=== PATIENT | female | born 1970 | race Caucasian/White ===

== ENCOUNTER 2019-10-28 14:52 | Emergency (ER) | payer OTHER, SELFPAY ==
--- NOTE | 2019-10-28 15:03 | ED.BACK ---
HPI - Back Pain/Injury General Chief Complaint: Back Pain/Injury Stated Complaint: back/arm pain Time Seen by Provider: 10/28/19 15:04 Source: patient and RN notes reviewed Mode of arrival: ambulatory Limitations: no limitations History of Present Illness HPI Narrative: This is a 48 years old female presents to the office for an evaluation of back pain post fall yesterday. She slipped and fell on her bottom. Pain was tolerable at first, she able to get up without any assistance. She woke up this morning with really bad pain in her her whole back especially her lower back. Denies numbness or tingling in her fingers or toes. She took Tylenol prior to arrival. Denies head injury or dizziness prior to falling. Related Data Home Medications Medication Instructions Recorded Confirmed alprazolam 2 mg PO TID PRN 10/28/19 10/28/19 Allergies Allergy/AdvReac Type Severity Reaction Status Date / Time No Known Allergies Allergy Verified 10/28/19 14:56 Review of Systems Review of Systems: Narrative: CONSTITUTIONAL: Denies feeling ill EYES: Denies visual changes ENT: Denies congestion CARDIOVASCULAR: Denies chest injury RESPIRATORY: Denies dyspnea GASTROINTESTINAL: Denies abdominal injury GENITOURINARY: Denies urinary or bowel incontinence SKIN: Denies bruising MUSCULOSKELETAL: Reports left arm, shoulder and back pain. NEUROLOGIC: Denies lightheaded/dizziness PMFSH Social History Social History (Updated 10/28/19 @ 15:21 by STANLEY Todd) Smoking status: Current every day smoker Gender identity (if verbalized by the patient): Female Comments At time of signature, I agree with nursing past medical, surgical, social and family history. There is no relevant family history pertinent to the presenting complaint. Exam Narrative: Exam Narrative: GENERAL: This is a well-nourished, well-developed patient, in no apparent distress. CARDIOVASCULAR: Regular rate and rhythm without murmurs, gallops, or rubs. RESPIRATORY: Clear to auscultation. Breath sounds equal bilaterally. No wheezes, rales, or rhonchi. GASTROINTESTINAL: Abdomen soft, non-tender, nondistended. Bowel sounds are active. No guarding. NEURO: awake, alert, and oriented to person, place and time. There were no obvious focal neurologic abnormalities. Steady gait EXTREMITIES: Normal range of motion. Patient flexes her left arm to show me where her back pain located BACK: Tenderness in the paraspinous muscles in the thoracic, lumbar area. No tenderness over the spinous processes of the lumbar vertebrae. LEGS: Normal strength including dorsi-flexion and plantar flexion of the feet. Negative bilateral straight leg raising; reports feeling tight on her back when she lifted her legs, normal and symmetrical knee reflexes. No obvious skin abrasion/bruise noted on her back/bottock. [place] Coma Scale Eye Opening: Spontaneous 4 Ruddy Coma Scale Motor: Obeys Commands 6 [place] Coma Scale Verbal: Oriented 5 MDM - Back Pain/Injury MDM Narrative Medical decision making narrative: X-ray is not indicated at this time since there is no spinal injury based on patient s/s and clinical exam. Patient agrees with plan of care. Discharge instructions reviewed with patient, as well as provided in writing per nursing staff. The instructions also include specific and strict return/GO TO THE ER as well as f/u information. All questions have been answered, and the patient deny any further questions with discharge and discharge plan. Differential Diagnosis Differential diagnosis: Likely lumbar radiculopathy, sciatica and strain of lumbar region Critical Care Time Critical Care Time Critical Care Time: No Discharge Plan Discharge Clinical Impression: Back pain Qualifiers: Back pain location: low back pain Chronicity: acute Back pain laterality: left Sciatica presence: without sciatica Qualified Code(s): M54.5 - Low back pain Patient Disposition: Home, Self-Care Co
[2019-10-28 15:04] VITALS: BP 121/80; PULSE 112; RESP 16; TEMP 36.6; O2SAT 98
== END 2019-10-28 15:15 | disposition home or self-care (01) ==
PROVIDERS: Emergency Provider Nurse Practitioner
DX: S39.92XA Unspecified injury of lower back, initial encounter (principal); F17.210 Nicotine dependence, cigarettes, uncomplicated; W01.0XXA Fall on same level from slipping, tripping and stumbling without subsequent striking against object, initial encounter
CPT/HCPCS: 99213; G0463

== ENCOUNTER 2020-08-03 17:29 | Emergency (ER) | payer OTHER, SELFPAY ==
[2020-08-03 17:44] VITALS: BP 114/68; PULSE 101; RESP 16; TEMP 36.1; O2SAT 99
--- NOTE | 2020-08-03 18:02 | ED.URI ---
HPI - URI/Sore Throat General Chief Complaint: Upper Respiratory Infection Stated Complaint: sore throat Time Seen by Provider: 08/03/20 17:48 Source: patient and RN notes reviewed Mode of arrival: ambulatory Limitations: no limitations History of Present Illness HPI Narrative: Patient presents today complaining of a sore throat x2 days. She denies any additional symptoms to include cough, congestion, rhinorrhea, fever, ear pain, loss of taste or smell, nausea, vomiting, diarrhea. Currently rates her sore throat 8/10, which increases with swallowing. She has been taking ibuprofen without relief. Denies any sick contacts. MD elicited complaint: sore throat Related Data Home Medications Medication Instructions Recorded Confirmed No Home Medications 08/03/20 08/03/20 Allergies Allergy/AdvReac Type Severity Reaction Status Date / Time No Known Allergies Allergy Verified 08/03/20 17:48 Review of Systems Review of Systems: Narrative: CONSTITUTIONAL: Denies body aches, fever, chills, or sweats. EYES: Denies visual changes, redness, or discharge. ENT: Denies rhinorrhea, congestion,or otalgia.+ Sore throat CARDIOVASCULAR: Denies chest pain, palpitations, or edema. RESPIRATORY: Denies cough or dyspnea. GASTROINTESTINAL: Denies abdominal pain, nausea, vomiting, or diarrhea. GENITOURINARY: Denies dysuria or hematuria. SKIN: Denies rash, itching, or wounds. MUSCULOSKELETAL: Denies back pain, joint pain, or myalgia. NEUROLOGIC: Denies headache, numbness, tingling, or weakness. PSYCH: Denies depression or anxiety. [facility] Social History Social History (Updated 10/28/19 @ 15:21 by STANLEY Todd) Smoking status: Current every day smoker Gender identity (if verbalized by the patient): Female Comments At time of signature, I have reviewed and agree with nursing past medical, surgical, social and family history unless otherwise noted. Please see nursing chart for further information. There is no relevant family history pertinent to the presenting complaint Exam Narrative: Exam Narrative: GENERAL: Well-appearing, well-nourished, and in no acute distress. HEAD: Normocephalic, atraumatic. EYES: EOMI. No redness or drainage. Conjunctivae normal. ENT: Mucous membranes pink and moist. Nares clear. No rhinorrhea. TMs normal bilaterally. Throat slightly erythematous without edema or exudate. Uvula midline. NECK: Normal AROM. Supple. No lymphadenopathy. CHEST: No respiratory distress. Clear to auscultation. HEART: Regular rate and rhythm. No murmur appreciated. Normal peripheral pulses. EXTREMITIES: Normal range of motion. No edema. SKIN: Warm, dry, no rash. Capillary refill normal. Normal skin turgor. NEURO: No focal deficits. Alert and oriented x3. Gait steady. PSYCH: Normal affect. No signs of depression or anxiety. Course Vital Signs Vital signs: Vital Signs Temperature 97.0 F L 08/03/20 17:44 Pulse Rate 101 H 08/03/20 17:44 Respiratory Rate 16 08/03/20 17:44 Blood Pressure 114/68 08/03/20 17:44 Pulse Oximetry 99 08/03/20 17:44 Temperature 97.0 F L 08/03/20 17:44 Pulse Rate 101 H 08/03/20 17:44 Respiratory Rate 16 08/03/20 17:44 Blood Pressure 114/68 08/03/20 17:44 Pulse Oximetry 99 08/03/20 17:44 Reviewed. Pt has been instructed to follow up with his PCP regarding his elevated blood pressure today. MDM - URI/Sore Throat Differential Diagnosis Differential diagnosis: Likely upper respiratory infection, viral infection, pharyngitis and other (Strep throat) Lab Data Attestation: I reviewed the patient's lab results. Labs: Strep Screen Presumptive Negative *(Reference Range: Negative)* Critical Care Time Critical Care Time Critical Care Time: No Discharge Plan Discharge Clinical Impression: Acute viral pharyngitis Patient Disposition: Home, Self-Care Condition: Stable Instructions: Strep T
== END 2020-08-03 18:07 | disposition home or self-care (01) ==
PROVIDERS: Emergency Provider Nurse Practitioner
DX: J02.8 Acute pharyngitis due to other specified organisms (principal); F17.200 Nicotine dependence, unspecified, uncomplicated
CPT/HCPCS: 87081; 87880; 99213; G0463

== ENCOUNTER 2020-11-06 23:56 | Emergency (ER) | payer OTHER, SELFPAY ==
--- NOTE | ~2020-11-06 | XR_ITS ---
EXAMINATION: XR ankle LT min 3V, XR tibia fibula LT 2V DATE: 11/07/2020 00:39 INDICATION: Left ankle and lower leg pain post fall TECHNIQUE: 1. Anteroposterior and lateral views of the left tibia and fibula were obtained. 2. Anteroposterior, oblique, mortise, and lateral views of the left ankle were obtained. COMPARISON: None. FINDINGS: Alignment is normal. No fracture. Joint spaces are well maintained. No ankle joint effusion. The so ft tissues are unremarkable. IMPRESSION: 1. Normal left lower leg and ankle radiographs. Reviewed, dictated and finalized at location A. IMPRESSION: 1. Normal left lower leg and ankle radiographs.
[2020-11-07 00:23] VITALS: BP 138/94; PULSE 108; RESP 21; TEMP 36; O2SAT 100
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
== END 2020-11-07 00:35 | disposition left against medical advice (07) ==
LOC: ANHED 11-07 01:01
PROVIDERS: Emergency Provider Emergency Medicine
DX: M79.662 Pain in left lower leg (principal)
CPT/HCPCS: 73590; 73610; 99199

== ENCOUNTER 2021-04-26 17:17 | Emergency (ER) | payer OTHER, SELFPAY ==
--- NOTE | ~2021-04-26 | CT_ITS ---
EXAMINATION: CT abdomen pelvis w con DATE: 04/26/2021 20:15 INDICATION: Abdominal pain TECHNIQUE: Computed tomography (CT) of the abdomen and pelvis was performed with 100 mL Omnipaque-350 intravenous contrast. Automated exposure control and iterative reconstruction technique were employe d. The dose-length product was 473.12 mGy-cm. COMPARISON: None FINDINGS: Minimal bibasilar atelectasis. Heart size is normal. No pericardial or pleural effusion. Liver, gallb ladder, spleen, pancreas, bilateral adrenal glands and left kidney are normal. Couple small regions o f cortical scarring at the right kidney. 2 mm nonobstructing stone versus heterotopic ossification at one of the regions of scarring at the upper pole of the right kidney. No ureteral stones or hydronep hrosis. The bowels including a retrocecal appendix are normal. Bladder, uterus and bilateral adnexa a re unremarkable. No free intraperitoneal gas or fluid. No pathologically enlarged abdominal or pelvic lymphadenopathy. Minimal lumbar dextrocurvature with mild spondylosis. IMPRESSION: 1. No acute intra-abdominal/pelvic process. 2. 2 mm nonobstructing right renal stone. Reviewed, dictated and finalized at location A. ERCIAL CRABBER
[2021-04-26 17:29] VITALS: BP 133/86; PULSE 99; RESP 20; TEMP 36.4; O2SAT 100
--- NOTE | 2021-04-26 18:46 | ED.ABDPAIN ---
HPI - Abdominal Pain General Chief Complaint: Abdominal Pain Stated Complaint: ABD pain x 3 days Time Seen by Provider: 04/26/21 18:38 Source: patient Mode of arrival: ambulatory Limitations: no limitations History of Present Illness HPI narrative: 50-year-old female with no significant past medical history complaining of right mid to upper quadrant pain for the last 3 days. Worse with eating, worse with deep breath and worse with moving. No previous history of same. No vomiting. Does have decreased appetite. No fever. Pain is described as sharp, constant, radiating to R mid back. No hematuria no dysuria no urgency. No diarrhea, no luisa colored stools. Denies STD risk factors. Related Data Allergies Allergy/AdvReac Type Severity Reaction Status Date / Time No Known Allergies Allergy Verified 08/03/20 17:48 Review of Systems Review of Systems: CONSTITUTIONAL: no fever, no weight loss, no confusion EYES: no vision changes, no eye pain ENT: no rhinorrhea, no sore throat, no difficulty swallowing CARDIOVASCULAR: no chest pain, no leg edema, no palpitations RESPIRATORY: no cough, no shortness of breath, no hemoptysis GASTROINTESTINAL: positive for abdominal pain and nausea, no vomiting, no diarrhea GENITOURINARY: no flank pain, no dysuria, no hematuria SKIN: no rash, no jaundice MUSCULOSKELETAL: no back pain, no trauma. NEUROLOGIC: No headache, no dizziness, no focal weakness PSYCHIATRIC: No hallucinations, no suicidal ideation PMFSH Social History Social History Smoking status: Current every day smoker Gender identity (if verbalized by the patient): Female Exam Narrative: General: alert, afebrile, answering all questions appropriately Head: normocephalic, atraumatic Eyes: EOMI bilaterally, anicteric, no injection ENT: moist mucous membranes, oropharynx patent, no rhinorrhea Neck: supple, trachea midline, no JVD Chest: equal chest rise bilaterally, no chest wall trauma noted Abd: soft, RUQ tend to palpation, positive stevens's : no CVA tenderness B, bladder non-distended EXT: no deformity noted, moving all extremities equally Skin: warm, dry, no pallor Neuro: alert, oriented x 3; CN 2-12 grossly intact, no dysarthria Psych: affect appropriate, though content normal Course Course Emergency Course: Patient tolerating PO, pain controlled, 2mm non-obstructing renal stone, no evidence of hepatobiliary disease Reevaluation(s) Reevaluation #1: Called to patient room bc of itching near IV site; now going away Date: 04/26/21 Time: 19:58 Reevaluation #2: Tolerating PO, pain controlled, 2mm non-obstructing renal stone, UTI; plan to send home with antibiotics Date: 04/26/21 Time: 21:02 Vital Signs Vital signs: Vital Signs Temperature 36.4 C L 04/26/21 17:29 Pulse Rate 99 04/26/21 17:29 Respiratory Rate 20 04/26/21 17:29 Blood Pressure 133/86 04/26/21 17:29 Pulse Oximetry 100 04/26/21 17:29 Temperature 36.4 C L 04/26/21 17:29 Pulse Rate 77 04/26/21 21:44 Respiratory Rate 16 04/26/21 21:44 Blood Pressure 130/70 04/26/21 21:44 Pulse Oximetry 99 04/26/21 21:44 MDM - Abdominal Pain MDM Narrative Medical decision making narrative: 50-year-old female with no significant past medical history complaining of 3-day history of abdominal pain. Abdominal pain located right upper quadrant with positive Stevens sign on exam. No fever, no vomiting does have nausea and decreased appetite. No previous history of same. Differential Diagnosis Differential diagnosis: Likely acute appendicitis, calculus of kidney, diverticulitis, gastroenteritis, pancreatitis and other (Hepatobiliary disease, right pleural effusion, dehydration, electrolyte disorder, gastritis UTI pyelonephritis) Lab Data Result diagrams: 04/26/21 18:41 04/26/21 18:52 Labs: Lab Results 04/26/21 04/26/21 04/26/21 Range/Units 18:41 18:52 19:09
[2021-04-26 19:07] LABS: Basophils Absolute Auto 0.1 K/mm3 (0.0-0.1); Basophils Percent Auto 1.6 % (0.2-1.2); Eosinophils Absolute Auto 0.2 K/mm3 (0-0.3); Hemoglobin 13.5 g/dL (12.0-15.0); Immature Granulocyte Absolute 0.03 K/mm3 (0.00-0.031); Immature Granulocyte Percent A 0.4 % (0-0.5); Lymphocytes Absolute Auto 2.11 K/mm3 (0.9-3.2); Lymphocytes Percent Auto 30.4 % (18.3-44.2); Mean Corpuscular HGB Conc 32.1 g/dl (32-36); Mean Corpuscular Hemoglobin 29.5 pg (26-34); Mean Corpuscular Volume 91.9 fl (80-100); Mean Platelet Volume 11.4 fl (7.4-10.4); Monocytes Absolute Auto 0.5 K/mm3 (0.1-0.6); Monocytes Percent Auto 7.1 % (2.6-8.5); Neutrophils Percent Auto 57.5 % (45.5-73.1); Platelet Count Result 230 k/mm3 (150-375); Red Blood Count 4.57 M/mm3 (4.2-5.4); White Blood Count 6.9 K/mm3 (4.5-10.0)
--- NOTE | 2021-04-26 19:15 | PC.NURSE ---
Report received from FAUSTINO Hung. Assumed care of patient at this time.
[2021-04-26 19:18] LABS: Alanine Aminotransferase 14 U/L (4-35); Albumin Level 4.3 g/dL (3.5-5.1); Alkaline Phosphatase 106 U/L (38-126); Anion Gap 7 mmol/L (8-16); Aspartate Amino Transferase 25 U/L (14-36); Bilirubin,Total 0.2 mg/dL (0.2-1.3); Blood Urea Nitrogen 13 mg/dL (7-17); Calcium 8.8 mg/dL (8.4-10.2); Carbon Dioxide 27 mmol/L (22-30); Chloride 103 mmol/L (98-107); Estimated CRCL calculation 69 ml/min; Estimated Glomerular Filt Rate > 60; Glucose 92 mg/dL (65-110); Lipase 122 U/L (23-300); Potassium 4.1 mmol/L (3.4-5.0); Sodium 137 mmol/L (137-145)
[2021-04-26 19:23] LABS: Add Urine Microscopic? YES; Appearance Urine Cloudy (Clear); Bacteria Urine 1+ /hpf; Bilirubin Urine Negative (Negative); Blood Urine Negative (Negative); Budding Yeast Urine Present /hpf; Color Urine Amber (Yellow); Glucose Urine UA Negative (Negative); Ketones Urine Negative (Negative); Leukocyte Esterase Ur 1+ LEU/UL (Negative); Mucus Urine Moderate /lpf; Nitrate Urine Positive (Negative); Protein Urine Negative (Negative); RBC Urine 0-2 /hpf (0-2); Specific Grav Ur 1.023 (1.001-1.035); Squamous Epithelial Cell Urine Occasional /hpf (Few); WBC Urine 31-50 /hpf
[2021-04-26] MEDS: ONDANSETRON INJ 4 MG/2 ML VIAL IV PUSH (19:46)
[2021-04-26] MEDS: SODIUM CHLORIDE 0.9% IV 1,000 ML 999 ML IV CONT (19:46)
[2021-04-26] MEDS: MORPHINE SULFATE (*CRX) 2 MG/ML INJ IV PUSH (19:47)
[2021-04-26] MEDS: KETOROLAC 30 MG/ML VIAL (*BKC) IV PUSH (19:47)
--- NOTE | 2021-04-26 19:55 | PC.NURSE ---
Patient given morphine IVP. Patient c/o itching to site. Denies any itching elsewhere. Or any other symptoms. ERP notified.
[2021-04-26 19:56] VITALS: BP 125/90; O2SAT 100
[2021-04-26 19:57] VITALS: O2SAT 98
--- NOTE | 2021-04-26 20:06 | PC.NURSE ---
Patient taken to CT.
[2021-04-26] MEDS: CEPHALEXIN 500 MG CAPSULE PO (21:10)
[2021-04-26] MEDS: PHENAZOPYRIDINE HCL 100 MG TABLET 200 MG PO (21:11)
[2021-04-26 21:44] VITALS: BP 130/70; PULSE 77; RESP 16; O2SAT 99
== END 2021-04-26 21:44 | disposition home or self-care (01) ==
PROVIDERS: Emergency Medicine; Emergency Provider Emergency Medicine
DX: N39.0 Urinary tract infection, site not specified (principal); N20.0 Calculus of kidney; F17.200 Nicotine dependence, unspecified, uncomplicated
CPT/HCPCS: 36415; 74177; 80053; 81001; 83690; 85025; 87077; 87086; 87088; 87186; 96361; 96374; 96375; 99284; A9270; J1885; J2270; J2405; J7030; Q9967

== ENCOUNTER 2022-01-26 19:41 | Emergency (ER) | payer OTHER, SELFPAY ==
[2022-01-26 19:53] VITALS: BP 114/81; PULSE 108; RESP 16; TEMP 36.6; O2SAT 97
--- NOTE | 2022-01-26 20:00 | ED.URI ---
HPI - URI/Sore Throat General Chief Complaint: Upper Respiratory Infection Stated Complaint: sore throat Time Seen by Provider: 01/26/22 20:34 Source: patient and RN notes reviewed Mode of arrival: ambulatory Limitations: no limitations History of Present Illness HPI Narrative: 51-year-old female presents with concern for sore throat. Reports symptoms started today. She reports feeling like her throat is swollen, she coughs. She denies any evln-cjw-gyayisu medications for her symptoms. She denies shortness of breath or history of problems breathing. She denies fever, bodies, chills, sweats. Reports rhinorrhea and nasal congestion. Reports several members of her household have similar symptoms MD elicited complaint: cough and sore throat Related Data Allergies Allergy/AdvReac Type Severity Reaction Status Date / Time No Known Allergies Allergy Verified 08/03/20 17:48 Review of Systems Review of Systems: CONSTITUTIONAL: Denies malaise, chills, sweats, or fever. EYES: Denies visual changes, redness, or discharge. ENT: Reports rhinorrhea, congestion, and sore throat. CARDIOVASCULAR: Denies chest pain, palpitations, or edema. RESPIRATORY: Reports cough. Denies dyspnea. GASTROINTESTINAL: Denies abdominal pain, nausea, vomiting, diarrhea SKIN: Denies rash or itching. MUSCULOSKELETAL: Denies myalgia. NEUROLOGIC: Denies headache. All systems reviewed & are unremarkable except as noted in HPI and below PMFSH Social History Social History Smoking status: Current every day smoker Gender identity (if verbalized by the patient): Female Comments At time of signature, agree with nursing past medical, surgical, social and family history. There is no relevant family history pertinent to the presenting complaint Exam Narrative: GENERAL: Well-appearing, well-nourished, and in no acute distress. HEAD: Normocephalic EYES: PERRLA, conjunctivae clear ENT: Nares clear, turbinates edematous and erythematous, clear discharge. Mucous membranes moist. TM pearly cook with sharp light reflex bilaterally; no tragal tenderness. Oropharynx erythematous without lesions. Tonsils not enlarged and without exudate, no drooling, no hoarseness, no trismus, uvula midline. NECK: Supple. No lymphadenopathy CHEST: Clear to auscultation, breath sounds equal. No wheezing, rhonchi, rales, or stridor. No respiratory distress, speaks in full sentences. HEART: Regular rate and rhythm. No murmur heard. SKIN: Warm, dry, no rash. NEURO: Alert and oriented x3. PSYCH: Normal mood and affect Course Course Emergency Course: Patient is here being seen with 5 other family members who all have significantly swollen tonsils and appear more ill by day 3 of symptoms, this patient is only on day 1 of symptoms we will treat presumptively waiting for strep. Patient is aware of diagnosis, understands and agrees to treatment plan. Anticipatory guidance given. Patient agrees to follow-up as directed and is aware of reasons to seek care at the emergency department. Portions of this record may have been created with voice recognition software Level of Care: Express Care Visit Vital Signs Vital signs: Vital Signs Temperature 97.8 F 01/26/22 19:53 Pulse Rate 108 H 01/26/22 19:53 Respiratory Rate 16 01/26/22 19:53 Blood Pressure 114/81 01/26/22 19:53 Pulse Oximetry 97 01/26/22 19:53 Oxygen Delivery Room Air 01/26/22 19:53 Temperature 97.8 F 01/26/22 19:53 Pulse Rate 108 H 01/26/22 19:53 Respiratory Rate 16 01/26/22 19:53 Blood Pressure 114/81 01/26/22 19:53 Pulse Oximetry 97 01/26/22 19:53 Oxygen Delivery Room Air 01/26/22 19:53 Reviewed. MDM - URI/Sore Throat MDM Narrative Medical decision making narrative: Differential diagnosis considered: Clifford virus, strep pharyngitis, allergic rhinitis, upper respiratory tract infection, sinusitis, rhinosinusitis, nasopharyngitis. viral
== END 2022-01-26 21:13 | disposition home or self-care (01) ==
PROVIDERS: Emergency Provider Nurse Practitioner
DX: J06.9 Acute upper respiratory infection, unspecified (principal); Z20.822 Contact with and (suspected) exposure to COVID-19; F17.290 Nicotine dependence, other tobacco product, uncomplicated
CPT/HCPCS: 87081; 87147; 87426; 99213; C9803; G0463

== ENCOUNTER 2022-12-14 08:57 | Outpatient (CLI) | payer OTHER, SELFPAY ==
[2022-12-14 10:20] LABS: Basophils Absolute Auto 0.1 K/mm3 (0.0-0.1); Eosinophils Absolute Auto 0.3 K/mm3 (0-0.3); Eosinophils Percent Auto 5.7 % (0-4.4); Hematocrit 43.9 % (37.0-47.0); Hemoglobin 13.7 g/dL (12.0-15.0); Immature Granulocyte Absolute 0.01 K/mm3 (0.00-0.031); Immature Granulocyte Percent A 0.2 % (0-0.5); Lymphocytes Absolute Auto 1.93 K/mm3 (0.9-3.2); Lymphocytes Percent Auto 36.8 % (18.3-44.2); Mean Corpuscular HGB Conc 31.2 g/dl (32-36); Mean Corpuscular Hemoglobin 29.2 pg (26-34); Mean Corpuscular Volume 93.6 fl (80-100); Mean Platelet Volume 12.1 fl (7.4-10.4); Monocytes Absolute Auto 0.4 K/mm3 (0.1-0.6); Monocytes Percent Auto 7.6 % (2.6-8.5); Neutrophils Absolute Auto 2.6 K/mm3 (1.3-6.7); Neutrophils Percent Auto 48.7 % (45.5-73.1); Platelet Count Result 202 k/mm3 (150-375); Red Blood Count 4.69 M/mm3 (4.2-5.4); Red Cell Distribution Width 13.3 % (11.5-14.5); White Blood Count 5.3 K/mm3 (4.5-10.0)
[2022-12-14 10:29] LABS: Hemoglobin A1C 5.6 % (<5.7)
[2022-12-14 10:31] LABS: Alanine Aminotransferase 23 U/L (6-35); Albumin Level 4.2 g/dL (3.5-5.1); Alkaline Phosphatase 84 U/L (38-126); Anion Gap 5 mmol/L (8-16); Aspartate Amino Transferase 35 U/L (14-36); Bilirubin,Total 0.4 mg/dL (0.2-1.3); Blood Urea Nitrogen 12 mg/dL (7-17); Calcium 9.2 mg/dL (8.4-10.2); Carbon Dioxide 26 mmol/L (22-30); Chloride 107 mmol/L (98-107); Cholesterol 215 mg/dL (0-200); Estimated Glomerular Filt Rate > 60; Glucose 89 mg/dL (65-110); HDL Direct 55 mg/dL; Potassium 4.4 mmol/L (3.4-5.0); Sodium 138 mmol/L (137-145); Triglycerides 151 mg/dL (<150)
[2022-12-14 10:42] LABS: LDL Cholesterol Direct 111 mg/dL
[2022-12-14 10:56] LABS: Free T4 Free Thyroxine 0.98 ng/mL (0.78-2.19); Vitamin D 25 Hydroxy 50.1 ng/mL
[2022-12-14 11:01] LABS: Thyroid Stimulating Hormone 0.847 uIU/mL (0.465-4.680)
[2022-12-14 11:25] LABS: Hepatitis B Surface Anti Res Negative
[2022-12-14 11:30] LABS: Hepatitis C Virus Antibody Reactive (Negative)
[2022-12-14 12:33] LABS: HIV 1/2 Ab P24 Ag Result Negative (Negative)
[2022-12-18 15:46] LABS: Hepatitis C RNA, Quant PCR <15 IU/mL
== END 2022-12-14 08:58 | disposition home or self-care (01) ==
DX: Z00.00 Encounter for general adult medical examination without abnormal findings (principal); Z13.29 Encounter for screening for other suspected endocrine disorder; Z13.1 Encounter for screening for diabetes mellitus; Z13.228 Encounter for screening for other metabolic disorders
CPT/HCPCS: 36415; 80053; 80061; 82306; 83036; 84439; 84443; 85025; 86703; 86706; 86803; 87522; G0432

== ENCOUNTER 2022-12-17 13:55 | Outpatient (CLI) | payer OTHER, SELFPAY ==
--- NOTE | ~2022-12-17 | CT_ITS ---
EXAMINATION: CT lung screening DATE: 12/17/2022 14:55 INDICATION: Personal history of nicotine dependence, current smoker with 30 pack year history TECHNIQUE: Computed tomography (CT) of the chest was performed without intravenous contrast. The dose -length product (DLP) was 62.41 mGy-cm. Automated exposure control and iterative reconstruction techn [employer] were employed. COMPARISON: None FINDINGS: There is moderate emphysema. No pulmonary nodules are identified. There is mild dependent a telectasis of the lungs. The lungs are free of focal airspace opacities. No pathologically enlarged t horacic lymph nodes are identified. The heart size is normal. There is a 3 mm nonobstructing stone of the left kidney. IMPRESSION: 1. Lung-RADS category 1: Negative. Continue annual screening with noncontrast low-dose chest CT in 12 months. Reviewed, dictated and finalized at location B. IMPRESSION: 1. Lung-RADS category 1: Negative. Continue annual screening with noncontrast l ow-dose chest CT in 12 months.
== END 2022-12-17 13:56 | disposition home or self-care (01) ==
DX: Z12.2 Encounter for screening for malignant neoplasm of respiratory organs (principal); F17.210 Nicotine dependence, cigarettes, uncomplicated
CPT/HCPCS: 71271

== ENCOUNTER 2023-02-17 08:57 | Emergency (ER) | payer OTHER, SELFPAY ==
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
[2023-02-17 09:00] VITALS: BP 107/69; PULSE 98; RESP 16; TEMP 37.2; O2SAT 96
[2023-02-17 09:48] VITALS: BP 117/78; PULSE 88; RESP 18; TEMP 36.8; O2SAT 95
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
[2023-02-17 11:55] LABS: Basophils Percent Auto 0.4 % (0.2-1.2); Eosinophils Absolute Auto 0.1 K/mm3 (0-0.3); Eosinophils Percent Auto 0.6 % (0-4.4); Hematocrit 41.7 % (37.0-47.0); Hemoglobin 13.4 g/dL (12.0-15.0); Immature Granulocyte Absolute 0.03 K/mm3 (0.00-0.031); Immature Granulocyte Percent A 0.4 % (0-0.5); Lymphocytes Absolute Auto 1.31 K/mm3 (0.9-3.2); Mean Corpuscular HGB Conc 32.1 g/dl (32-36); Mean Corpuscular Hemoglobin 29.3 pg (26-34); Mean Platelet Volume 12.2 fl (7.4-10.4); Monocytes Absolute Auto 0.4 K/mm3 (0.1-0.6); Monocytes Percent Auto 4.8 % (2.6-8.5); Neutrophils Absolute Auto 5.9 K/mm3 (1.3-6.7); Neutrophils Percent Auto 76.8 % (45.5-73.1); Platelet Count Result 195 k/mm3 (150-375); Red Blood Count 4.58 M/mm3 (4.2-5.4); Red Cell Distribution Width 12.2 % (11.5-14.5); White Blood Count 7.7 K/mm3 (4.5-10.0)
[2023-02-17] MEDS: ACETAMINOPHEN 500 MG TABLET 1000 MG PO (11:59)
[2023-02-17] MEDS: KETOROLAC 30 MG/ML VIAL (*BKC) IM (12:00)
[2023-02-17 12:05] LABS: Anion Gap 9 mmol/L (8-16); Blood Urea Nitrogen 13 mg/dL (7-17); Calcium 9.4 mg/dL (8.4-10.2); Carbon Dioxide 23 mmol/L (22-30); Chloride 107 mmol/L (98-107); Estimated CRCL calculation 77 ml/min; Estimated Glomerular Filt Rate > 60; Glucose 94 mg/dL (65-110); Potassium 4.1 mmol/L (3.4-5.0); Sodium 139 mmol/L (137-145)
[2023-02-17 13:55] VITALS: BP 120/70; PULSE 68; RESP 16; O2SAT 98
== END 2023-02-17 13:50 | disposition home or self-care (01) ==
PROVIDERS: Emergency Provider Nurse Practitioner Family
DX: S01.01XA Laceration without foreign body of scalp, initial encounter (principal); M47.812 Spondylosis without myelopathy or radiculopathy, cervical region; M17.11 Unilateral primary osteoarthritis, right knee; V43.52XA Car driver injured in collision with other type car in traffic accident, initial encounter
CPT/HCPCS: 12001; 36415; 70450; 71045; 72125; 73562; 80048; 85025; 99284; A9270; J1885